=== PATIENT | female | born 1960 | race Asian ===

== ENCOUNTER 2016-08-28 10:13 | Emergency (ER) | payer OTHER ==
[~2016-08-28] VITALS: Ht 152.4 cm; Wt 45.4 kg
--- NOTE | 2016-08-28 10:51 | ED CARDIAC/CP/PALPITATIONS ---
History of Present Illness General Chief Complaint: Palpitations Stated Complaint: PALPITATIONS Source: patient, family Exam Limitations: no limitations Vital Signs & Intake/Output Vital Signs & Intake/Output Vital Signs Date Time Temp Pulse Resp B/P B/P Pulse O2 O2 Flow FiO2 Mean Ox Delivery Rate 08/28 1056 150/84 08/28 1019 98.4 73 20 176/90 98 Room Air Allergies Coded Allergies: No Known Allergies (08/28/16) Reconcile Medications Aspirin (Aspirin*) 81 MG TAB.CHEW 1 TAB PO DAILY HEART HEALTH (Reported) Calcium Carbonate/Vitamin D3 (Calcium 500 + D Tablet) 500 MG-400 TABLET 1 TAB PO DAILY SUPPLEMENT (Reported) Levothyroxine Sodium 112 MCG TABLET 1 TAB PO DAILY AC THYROID (Reported) [place]-3 Fatty Acids/Fish Oil (Fish Oil 1,000 MG Capsule) 340 MG-1,000 MG CAPSULE 1 CAP PO DAILY SUPPLEMENT (Reported) Triage Note: PT TO ED C/O PALPITATIONS SINCE THIS AM. DENIES ANY PAIN. STATES BP IS ELEVATED. H/O HYPOTHYROID. EKG IN PROGRESS. Triage Nurses Notes Reviewed? yes HPI: Patient was at work this morning when she began to feel palpitations. Palpitations last approximate 5-10 minutes. Patient had a coworker check her vital signs. Her heart rate was in the 70s however her blood pressure was elevated. Patient does not suffer from high blood pressure. Patient denies any chest pain or shortness of breath. There is no headache or blurry vision. There is no nausea or vomiting. There is no blurry vision. There was in that the patient can think of is that she has been on Synthroid for the past 14 years however the last time she refilled her medication her insurance coverage changes levothyroxine. Past History Travel History Traveled to [place] past 21 day No Medical History Any Pertinent Medical History? see below for history Endocrine: hypothyroidism Surgical History Surgical History: non-contributory Psychosocial History What is your primary language Ethiopian Tobacco Use: Current Not Daily ETOH Use: denies use Illicit Drug Use: denies illicit drug use Family History Hx Contributory? No Review of Systems Review of Systems Constitutional: Reports: no symptoms. EENTM: Reports: no symptoms. Respiratory: Reports: no symptoms. Cardiovascular: Reports: see HPI, palpitations. GI: Reports: no symptoms. Genitourinary: Reports: no symptoms. Musculoskeletal: Reports: no symptoms. Skin: Reports: no symptoms. Neurological/Psychological: Reports: no symptoms. Hematologic/Endocrine: Reports: no symptoms. Immunologic/Allergic: Reports: no symptoms. All Other Systems: Reviewed and Negative Physical Exam Physical Exam General Appearance: well developed/nourished, alert, awake, anxious, mild distress Head: atraumatic, normal appearance Eyes: Bilateral: PERRL, EOMI. Ears, Nose, Throat: normal pharynx, normal ENT inspection, hearing grossly normal Neck: normal inspection, supple, full range of motion Respiratory: normal breath sounds, chest non-tender, no respiratory distress, lungs clear Cardiovascular: regular rate/rhythm, normal peripheral pulses Gastrointestinal: normal bowel sounds, soft, non-tender, no organomegaly Back: normal inspection, normal range of motion Extremities: normal inspection, normal capillary refill, normal range of motion, no edema Neurologic/Psych: no motor/sensory deficits, awake, alert, oriented x 3, normal gait, normal mood/affect Skin: intact, normal color, warm/dry Lymphatic: no anterior cervical champ Core Measures ACS in differential dx? Yes ASA ordered for poss ACS? No-ACS ruled out Severe Sepsis Present: No Septic Shock Present: No Progress Differential Diagnosis: AMI, atrial fibrillation, myocarditis, pericarditis, pneumonia, pneumothorax, PSVT, pulmonary embolism Plan of Care: Orders Procedure Date/time Status THYROID STIMULATING HORMONE 08/28 1025 Complete TROPONIN LEVEL 08/28 1025 Complete D-DIMER 08/28 1025 Complete COMPREHENSIVE METABOLIC PANEL 08/28 1025 Complete CBC WITHOUT DIFFERENTIAL 08/28 1025 Complete EKG 08/28 1014 Active Laboratory Tests 08/28/16 1109: Anion Gap 9, Estimated GFR > 60, BUN/Creatinine Ratio 23.3, Glucose 87, Calcium 9.0, Total Bilirubin 0.3, AST 28, ALT 32, Alkaline Phosphatase 87, Troponin I < 0.01, Total Protein 7.1, Albumin 4.2, Globulin 2.9, Albumin/Globulin Ratio 1.4, TSH 5.220 H, D-Dimer < 200, CBC w Diff NO MAN DIFF REQ, RBC 3.78 L, MCV 93.7, MCH 31.3 H, RDW 12.8, MPV 7.1 L, Gran % 65.8, Lymphocytes % 23.3, Monocytes % 8.9, Eosinophils % 1.6, Basophils % 0.4, Absolute Granulocytes 2.9, Absolute Lymphocytes 1.0 L, Absolute Monocytes 0.4, Absolute Eosinophils 0.1, Absolute Basophils 0, PUBS MCHC 33.4 Initial ED EKG: NSR, no ST T wave changes Departure Departure Disposition: HOME OR SELF CARE Condition: Stable Clinical Impression Primary Impression: Hypothyroid Secondary Impressions: Palpitations Referrals: DARRIUS DEMPSEY,NIDIA Cárdenas (PCP/Family) Additional Instructions: FOLLOW UP WITH YOUR DOCTOR TO DISCUSS TAKING BRAND NAME SYNTHROID RETURN FOR ANY CONCERNS Departure Forms: Customer Survey General Discharge Information Critical Care Note Critical Care Note Critical Care Time: non-applicable
[2016-08-28 10:56] VITALS: BP 150/84
[2016-08-28] MEDS ORDERED: LEVOTHYROXINE112 MCG PO (10:57)
[2016-08-28] MEDS ORDERED: CALCIUM 500 +1 EAC5 PO (10:58)
[2016-08-28] MEDS ORDERED: ASPIRIN81 M4 PO (10:58)
[2016-08-28] MEDS ORDERED: FISH OIL 1,0001 EACH PO (10:59)
[2016-08-28 11:24] LABS: ABSOLUTE BASOPHIL COUNT 0 /CUMM (0.0-0.2); ABSOLUTE EOSINOPHIL COUNT 0.1 /CUMM (0.0-0.7); ABSOLUTE GRANULOCYTE CT 2.9 /CUMM (1.4-6.5); ABSOLUTE MONOCYTE COUNT 0.4 /CUMM (0.10-0.60); BASOPHIL % 0.4 % (0.0-2.0); EOSINOPHIL % 1.6 % (0-5); GRANULOCYTE % 65.8 % (42.2-75.2); HEMATOCRIT 35.4 % (37-47); MEAN CORPUSCULAR HGB 31.3 PG (27.0-31.0); MEAN CORPUSCULAR HGB CONC 33.4 G/DL (33.0-37.0); MEAN CORPUSCULAR VOLUME 93.7 FL (81.0-99.0); MEAN PLATELET VOLUME 7.1 FL (7.4-10.4); PLATELET COUNT 259 /CUMM (130-400); RBC DISTRIBUTION WIDTH 12.8 % (11.5-14.5); RED BLOOD CELL CT 3.78 /CUMM (4.20-5.40); WHITE BLOOD CELL COUNT 4.5 /CUMM (4.8-10.8)
== END 2016-08-28 13:00 ==
LOC: ERH 10:13
PROVIDERS: Emergency Medicine
DX: E03.9 Hypothyroidism, unspecified (principal); R00.2 Palpitations
CPT/HCPCS: 93005; 93010